=== PATIENT | male | born 1975 | race Caucasian/White ===

== ENCOUNTER 2022-10-03 17:32 | Emergency (ER) | payer MEDICARE, MEDICAID ==
[~2022-10-03] VITALS: Ht 177.8 cm; Wt 80.0 kg
[2022-10-03] MEDS ORDERED: LORAZEPAM 1MG TABLET PO ONE (18:30)
[2022-10-03 20:15] LABS: BASOPHILS % 0.8 % (0.0-2.0); EOSINOPHILS % 3.8 % (0.0-5.0); HEMATOCRIT. 38.9 % (42.0-52.0); HEMOGLOBIN. 13.5 g/dL (14.0-18.0); LYMPHOCYTES % 36.9 % (20.0-50.0); MEAN CORPUSCULAR HEMOGLOBIN 33.7 pg (28.0-32.0); MEAN CORPUSCULAR VOLUME 97.1 fL (80.0-94.0); MEAN PLATELET VOLUME 6.3 fl (7.4-10.4); MONOCYTES % 6.8 % (2.0-8.0); NEUTROPHILS % 51.7 % (40.0-76.0); PLATELET 476 x1000/uL (130-400); RED CELL DISTRIBUTION WIDTH 14.3 % (11.6-14.6)
[2022-10-03 20:18] LABS: *AMPHETAMINES SCREEN URINE NEGATIVE (NEGATIVE); *BARBITURATES SCREEN URINE NEGATIVE (NEGATIVE); *BENZODIAZEPINES SCREEN URINE NEGATIVE (NEGATIVE); *COCAINE SCREEN URINE PRESUMTIVE POSITIVE (NEGATIVE); CANNABINOID URINE SCREEN NEGATIVE (NEGATIVE); METHADONE URINE SCREEN NEGATIVE (NEGATIVE); OPIATES URINE SCREEN NEGATIVE (NEGATIVE); PHENCYCLIDINE URINE SCREEN NEGATIVE (NEGATIVE)
[2022-10-03 20:22] LABS: CHLORIDE 105 mEq/L (98-107)
[2022-10-03 20:29] LABS: ETHANOL BLOOD 194 mg/dL
[2022-10-04] MEDS ORDERED: ACETAMINOPHEN 325MG TABLET PO ONE (13:00)
[2022-10-04] MEDS ORDERED: LAMOTRIGINE 100MG TABLET PO SCH (13:00)
[2022-10-04] MEDS ORDERED: FLUOXETINE HCL 20MG CAPSULE PO SCH (13:00)
[2022-10-04] MEDS: QUETIAPINE FUMARATE 200MG TABLET PO SCH ×2 (13:17→23:04)
[2022-10-04] MEDS ORDERED: RISPERIDONE 1MG TABLET PO SCH (13:30)
[2022-10-05 02:21] VITALS: BP 142/91
== END 2022-10-05 02:33 | disposition short-term general hospital (02) ==
LOC: ER 17:32
DX: R45.851 Suicidal ideations (principal); F10.129 Alcohol abuse with intoxication, unspecified; F14.10 Cocaine abuse, uncomplicated; Z20.822 Contact with and (suspected) exposure to COVID-19; Y90.6 Blood alcohol level of 120-199 mg/100 ml
CPT/HCPCS: 36415; 80053; 80165; 80305; 80307; 80320; 80329; 85025; 87426; 99285; C9803; G0480

== ENCOUNTER 2024-01-02 20:06 | Emergency (ER) | payer MEDICARE, MEDICAID ==
[~2024-01-02] VITALS: Ht 182.9 cm; Wt 90.0 kg
[2024-01-02 20:14] VITALS: O2SAT 99
[2024-01-02 21:15] VITALS: TEMP 36.78072
[2024-01-02 21:43] LABS: BASOPHILS % 0.4 % (0.0-2.0); EOSINOPHILS % 4.3 % (0.0-5.0); HEMATOCRIT. 32.7 % (42.0-52.0); HEMOGLOBIN. 11.4 g/dL (14.0-18.0); LYMPHOCYTES % 32.1 % (20.0-50.0); MEAN CORPUSCULAR HEMOGLOBIN 32.9 pg (28.0-32.0); MEAN CORPUSCULAR HGB CONC 34.8 g/dL (31.0-37.0); MEAN CORPUSCULAR VOLUME 94.5 fL (80.0-94.0); MEAN PLATELET VOLUME 6.7 fl (7.4-10.4); MONOCYTES % 7.7 % (2.0-8.0); NEUTROPHILS % 55.5 % (40.0-76.0); PLATELET 379 x1000/uL (130-400); RED BLOOD CELL COUNT 3.46 mill/uL (4.7-6.1); RED CELL DISTRIBUTION WIDTH 12.6 % (11.6-14.6); WHITE BLOOD COUNT 6.8 x1000/uL (4.5-11.0)
[2024-01-02 21:51] LABS: CHLORIDE 106 mEq/L (98-107); SODIUM 137 mEq/L (136-145)
[2024-01-02 21:52] LABS: CALCIUM 8.8 mg/dL (8.7-10.4); CARBON DIOXIDE 24 mEq/L (21-32)
[2024-01-02 21:57] LABS: GLUCOSE 76 mg/dL (70-105); UREA NITROGEN BLOOD 9 mg/dL (9-23)
[2024-01-02 21:58] LABS: ETHANOL BLOOD 120 mg/dL (<10)
[2024-01-02 21:59] LABS: ALANINE AMINOTRANSFERASE 18 IU/L (10-49); ALBUMIN 4.2 g/dL (3.2-4.8); ASPARTATE AMINOTRANSFERASE 27 IU/L (<34); BILIRUBIN TOTAL 0.4 mg/dL (0.1-1.0); PROTEIN TOTAL 6.1 g/dL (6.0-8.3)
[2024-01-02 23:00] VITALS: BP 122/73; PULSE 95; RESP 16; O2SAT 99
== END 2024-01-03 02:39 | disposition home or self-care (01) ==
LOC: ER 20:06
DX: F10.129 Alcohol abuse with intoxication, unspecified (principal); G89.29 Other chronic pain; M25.561 Pain in right knee; F19.90 Other psychoactive substance use, unspecified, uncomplicated; Y90.6 Blood alcohol level of 120-199 mg/100 ml
CPT/HCPCS: 36415; 80053; 80320; 85025; 99283; G0480